=== PATIENT | female | born 1990 | race African-American/Black ===

== ENCOUNTER 2019-05-20 14:21 | Emergency (ER) | payer MEDICAID ==
[~2019-05-20] VITALS: Ht 165.1 cm; Wt 58.0 kg
[2019-05-20 14:34] VITALS: BP 101/59
== END 2019-05-20 15:33 | disposition home or self-care (01) ==
LOC: ER 14:21
DX: S71.112D Laceration without foreign body, left thigh, subsequent encounter (principal); X58.XXXD Exposure to other specified factors, subsequent encounter
CPT/HCPCS: 99282